=== PATIENT | male | born 2000 | race Caucasian/White ===

== ENCOUNTER 2025-01-01 23:37 | Emergency (ER) | payer OTHER ==
[~2025-01-01] VITALS: Ht 180.3 cm; Wt 59.4 kg
[2025-01-01 23:47] VITALS: BP 138/74
[2025-01-02 00:29] LABS: PLATELET COUNT (AUTO) 232 K/uL (152-348); RED BLOOD CELL COUNT(AUTO) 4.89 MIL/uL (4.06-5.63); RED CELL DISTRIBUTION WIDTH 13.8 % (12.1-16.2); WHITE BLOOD COUNT (AUTO) 7.7 K/uL (3.6-10.2)
[2025-01-02] MEDS: IV NORMAL SALINE 500 ML BAG IV ONE (00:38)
[2025-01-02] MEDS: METOCLOPRAMIDE HCL 10 MG/2 ML VIAL IV ONE (00:38)
[2025-01-02] MEDS: FAMOTIDINE. 20 MG/2 ML VIAL IV ONE (00:38)
[2025-01-02] MEDS: KETOROLAC TROMETHAMINE 30 MG INJ IVP ONE (00:41)
[2025-01-02 00:44] LABS: ASPARTATE AMINOTRANSFERASE 14.0 U/L (15-37); CREATININE 0.8 mg/dL (0.6-1.3); SODIUM SERUM 141.0 mmol/L (136-145); TOTAL PROTEIN, SERUM 7.7 g/dL (6.4-8.2); UREA NITROGEN, BLOOD 20.0 mg/dL (7-18)
[2025-01-02 01:55] LABS: *BILIRUBIN,URIN NEGATIVE (NEGATIVE); *BLOOD, URINE NEGATIVE (NEGATIVE); *CLARITY,URINE CLEAR (CLEAR); *COLOR,URINE YELLOW (YELLOW); *KETONES,URINE NEGATIVE (NEGATIVE); *PROTEIN,URINE NEGATIVE (NEGATIVE); *UROBILINOGEN,URINE 0.2 E.U./dl (NORMAL); LEUKOCYTE ESTERASE ,URINE NEGATIVE (NEGATIVE); NITRITE, URINE NEGATIVE (NEGATIVE); UGLUCOSE NEGATIVE (NEGATIVE)
[2025-01-02 02:10] VITALS: BP 133/71; TEMP 98; O2SAT 98
== END 2025-01-02 02:10 | disposition home or self-care (01) ==
LOC: ER 23:51
DX: R10.11 Right upper quadrant pain (principal); R51.9 Headache, unspecified; F17.210 Nicotine dependence, cigarettes, uncomplicated
CPT/HCPCS: 99285; 70450; 96374; 96375; 96361; 80076; 80048; 81003; 83690; 85025; 36415; 74176; J1885; J1308; J2765; J7040; A4606; A4663